=== PATIENT | male | born 1970 | race Asian ===

== ENCOUNTER 2022-05-29 10:37 | Emergency (ER) | payer OTHER ==
[~2022-05-29] VITALS: Ht 177.8 cm; Wt 90.7 kg
[2022-05-29 10:55] VITALS: BP 129/87
--- NOTE | 2022-05-29 11:01 | NUR ---
51/m walked in c/o right eye blurriness onset 2 days. denies any known foreing object to the eye or trauma. denies eye discharge or itchiness. right eye appears red upon inspection. [id number], ambulatory, vitals stable.
--- NOTE | 2022-05-29 11:05 | NUR ---
pt reports hx astigmatism
[2022-05-29] MEDS ORDERED: FLUORESCEIN OPTH STRIP 1 MG OP ONE (11:25)
--- NOTE | 2022-05-29 11:35 | NUR ---
pt reports visiting pcp and was px eye drop today prior to visiting ed today
--- NOTE | 2022-05-29 11:51 | NUR ---
Patient discharged with v/s stable. Written and verbal after care instructions given and explained. Patient verbalized understanding. Ambulatory with steady gait. All questions addressed prior to discharge. Advised to follow up with PMD.
== END 2022-05-29 11:30 | disposition left against medical advice (07) ==
LOC: MED 10:37
DX: H10.9 Unspecified conjunctivitis (principal)
CPT/HCPCS: 99283